=== PATIENT | male | born 1975 | race Caucasian/White ===

== ENCOUNTER 2023-08-22 02:14 | Emergency (ER) | payer OTHER, SELFPAY ==
--- NOTE | ~2023-08-22 | CT_ITS ---
EXAMINATION: CT abdomen pelvis w con DATE: 08/22/2023 04:10 INDICATION: Right flank pain TECHNIQUE: Computed tomography (CT) of the abdomen and pelvis was performed with 100 mL Omnipaque-350 intravenous contrast. Automated exposure control and iterative reconstruction technique were employe d. The dose-length product was 1261.10 mGy-cm. COMPARISON: None FINDINGS: Lung bases are clear. Heart size is normal. No pericardial or pleural effusion. Mild diffuse hepatic steatosis with more focal steatosis at the ligamentum teres. Gallbladder, spleen, pancreas and bilate ral adrenal glands are normal. There is moderate bilateral hydronephrosis and right hydroureter exten ding to the bladder. Left internal ureteral stent with loops formed in the left renal pelvis and in t he bladder. The bladder is distended. Postoperative change of prior distal colectomy with left lower quadrant and colostomy. There is a parastomal hernia containing a portion of the transverse colon. No bowel obstruction. There is a contiguous soft tissue density mass with irregular margins extending b etween the region of the prostate which may be surgically absent and the rectal fossa which measures 8.7 x 6.9 x 6.7 cm which is suspicious for malignancy. Correlate for the etiology of the prior distal colectomy. Small fat-containing right inguinal hernia. No abscess or free intraperitoneal gas or flu id. No pathologically enlarged abdominal or pelvic lymphadenopathy. Severe lumbosacral spondylosis wi th 4 mm retrolisthesis L5 on S1. IMPRESSION: 1. Moderate bilateral hydronephrosis with left-sided intraureteral stent in expected position. This s uggests obstruction at the level of the bladder outlet potentially related to a suspected malignant m ass extending between the region of the rectal fossa and prostate post prior distal colectomy and pos sible prostatectomy. Correlate with clinical/surgical history. 2. Left lower quadrant and colostomy with large parastomal hernia containing a nonobstructed segment of the transverse colon. 2. Small fat-containing right inguinal hernia. Reviewed, dictated and finalized at location A. IMPRESSION: 1. Moderate bilateral hydronephrosis with left-sided intraureteral stent in exp ected position. This suggests obstruction at the level of the bladder outlet po tentially related to a suspected malignant mass extending between the region of the rectal fossa and prostate post prior distal colectomy and possible prostat ectomy. Correlate with clinical/surgical history. 2. Left lower quadrant and colostomy with large parastomal hernia containing a nonobstructed segment of the transverse colon. 2. Small fat-containing right inguinal hernia.
[2023-08-22 02:41] VITALS: BP 149/91; PULSE 55; RESP 12; TEMP 36.7; O2SAT 99
[2023-08-22 03:21] LABS: Basophils Percent Auto 0.4 % (0.2-1.2); Eosinophils Absolute Auto 0.1 K/mm3 (0-0.3); Eosinophils Percent Auto 1.3 % (0-4.4); Hematocrit 34.5 % (42.0-52.0); Hemoglobin 11.4 g/dL (14.0-18.0); Immature Granulocyte Absolute 0.03 K/mm3 (0.00-0.031); Immature Granulocyte Percent A 0.6 % (0-0.5); Lymphocytes Absolute Auto 0.65 K/mm3 (0.9-3.2); Lymphocytes Percent Auto 12.2 % (18.3-44.2); Mean Corpuscular Hemoglobin 30.8 pg (26-34); Mean Corpuscular Volume 93.2 fl (80-100); Mean Platelet Volume 10.5 fl (7.4-10.4); Monocytes Absolute Auto 0.8 K/mm3 (0.1-0.6); Monocytes Percent Auto 14.7 % (2.6-8.5); Neutrophils Absolute Auto 3.8 K/mm3 (1.3-6.7); Neutrophils Percent Auto 70.8 % (45.5-73.1); Platelet Count Result 142 k/mm3 (150-375); Red Cell Distribution Width 14.9 % (11.5-14.5); White Blood Count 5.3 K/mm3 (4.5-10.0)
[2023-08-22] MEDS: SODIUM CHLORIDE 0.9% IV 2,000 ML 999 ML IV CONT (03:33)
[2023-08-22] MEDS: HYDROmorphone HCL INJ (*CRX) 1 MG/ML SYR 0.5 MG IV PUSH (03:33)
[2023-08-22] MEDS: KETOROLAC 15 MG/ML VIAL (*BKC) IV PUSH (03:33)
[2023-08-22] MEDS: ONDANSETRON INJ 4 MG/2 ML VIAL IV PUSH (03:33)
[2023-08-22 03:34] LABS: Alanine Aminotransferase 21 U/L (6-50); Alkaline Phosphatase 76 U/L (38-126); Anion Gap 9 mmol/L (4-12); Aspartate Amino Transferase 29 U/L (17-59); Bilirubin,Total 0.6 mg/dL (0.2-1.3); Blood Urea Nitrogen 17 mg/dL (9-20); Carbon Dioxide 23 mmol/L (22-30); Chloride 111 mmol/L (98-107); Estimated CRCL calculation 94 ml/min; Estimated Glomerular Filt Rate > 60; Glucose 126 mg/dL (65-110); Potassium 3.6 mmol/L (3.4-5.0); Sodium 143 mmol/L (137-145)
[2023-08-22 03:39] LABS: Appearance Urine Clear (Clear); Bacteria Urine None Seen /hpf; Bilirubin Urine Negative (Negative); Blood Urine 3+ (Negative); Color Urine Yellow (Yellow); Glucose Urine UA Negative (Negative); Ketones Urine Negative (Negative); Leukocyte Esterase Ur 1+ LEU/UL (Negative); Nitrate Urine Negative (Negative); Non Pathogenic Casts 0-2; Protein Urine Trace mg/dL (Negative); RBC Urine 51-100 /hpf (0-2); Specific Grav Ur 1.007 (1.001-1.035); Squamous Epithelial Cell Urine None Seen /hpf (Few); Urobilinogen Urine 0.2 mg/dL (<2.0)
[2023-08-22 03:44] LABS: Add Urine Microscopic? YES
[2023-08-22 04:25] VITALS: BP 144/87; PULSE 51; RESP 18; O2SAT 96
[2023-08-22 05:15] VITALS: BP 161/83; PULSE 49; RESP 15; O2SAT 98
--- NOTE | 2023-08-22 06:11 | ED.GENADULT ---
HPI - General Adult General Chief complaint: Back Pain/Injury Stated complaint: stent replaced at [facility]; vomiting/pain Time Seen by Provider: 08/22/23 02:25 History of Present Illness HPI narrative: This is a 48-year-old male presenting with right-sided flank pain. Patient had a stent placed on the left side yesterday [facility] she was hospital by diogo Iglesias. Prior to arrival developed sharp pain in flank radiating down into the groin. He also notes that he is leaking urine. No fevers chills nausea vomiting or diarrhea. Related Data Allergies Allergy/AdvReac Type Severity Reaction Status Date / Time No Known Allergies Allergy Mild Verified 01/18/09 18:20 Exam Narrative: APPEARANCE: No apparent distress. Head: atraumatic. EYES: EOMI, NOSE: Atraumatic NECK: Trachea midline RESPIRATORY: No increased rate of breathing CARDIOVASCULAR: RRR, ABDOMINAL: Colostomy bag in place, suprapubic fullness rest the abdomen is soft nontender no guarding rebound MUSCULOSKELETAl: No obvious deformities NEURO: Alert. Moving 4/4 extremities SKIN:: Warm, dry. Normal color PSYCHIATRIC: Normal affect Course Vital Signs Vital signs: Vital Signs Temperature 98.1 F 08/22/23 02:41 Pulse Rate 55 L 08/22/23 02:41 Respiratory Rate 12 08/22/23 02:41 Blood Pressure 149/91 H 08/22/23 02:41 Pulse Oximetry 99 08/22/23 02:41 Oxygen Delivery Room Air 08/22/23 02:41 Temperature 98.1 F 08/22/23 02:41 Pulse Rate 49 L 08/22/23 05:15 Respiratory Rate 15 08/22/23 05:15 Blood Pressure 161/83 H 08/22/23 05:15 Pulse Oximetry 98 08/22/23 05:15 Oxygen Delivery Room Air 08/22/23 02:41 Medical Decision Making [facility] Narrative Medical decision making narrative: -Course: 48-year-old male presenting with right flank pain suprapubic pain and urinary leakage. CT showed a massively distended bladder with possible urinary outlet obstruction due to metastatic colon cancer. Catheter was placed with improvement in the patient's pain and over 1.5 L of urine. Patient will be discharged follow-up with his urologist for further management. -DDX includes but is not limited to: this placed stents, urinary retention, kidney stone, UTI/pyelo, bowel obstruction, progressing neoplasm -Co-morbidities complicating care: stage IV colon cancer -Independent interpretation of studies: labs reviewed CT: 1. Moderate bilateral hydronephrosis with left-sided intraureteral stent in expected position. This suggests obstruction at the level of the bladder outlet potentially related to a suspected malignant mass extending between the region of the rectal fossa and prostate post prior distal colectomy and possible prostatectomy. Correlate with clinical/surgical history. 2. Left lower quadrant and colostomy with large parastomal hernia containing a nonobstructed segment of the transverse colon. 2. Small fat-containing right inguinal hernia. -Interventions: 2 L normal saline, 4 mg Zofran, 15 mg Toradol, 0.5 mg Dilaudid -Shared decision making / Disposition: discharge Vital Signs Vital Signs: Vital Signs Temperature 98.1 F 08/22/23 02:41 Pulse Rate 55 L 08/22/23 02:41 Respiratory Rate 12 08/22/23 02:41 Blood Pressure 149/91 H 08/22/23 02:41 Pulse Oximetry 99 08/22/23 02:41 Oxygen Delivery Room Air 08/22/23 02:41 Temperature 98.1 F 08/22/23 02:41 Pulse Rate 49 L 08/22/23 05:15 Respiratory Rate 15 08/22/23 05:15 Blood Pressure 161/83 H 08/22/23 05:15 Pulse Oximetry 98 08/22/23 05:15 Oxygen Delivery Room Air 08/22/23 02:41 Lab Data 08/22/23 03:08 08/22/23 03:08 Labs: Lab Results 08/22/23 08/22/23 Range/Units 03:08 03:27 WBC 5.3 (4.5-10.0) K/mm3 RBC 3.70 L (4.6-6.20) M/mm3 Hgb 11.4 L (14.0-18.0) g/dL Hct 34.5 L (42.0-52.0) % MCV 93.2 (80-100) fl MCH 30.8 (26-34) pg MCHC 33.0 (32-36) g/dl RDW 14.9 H (11.5-14.5) % Plt Count
--- NOTE | 2023-08-22 06:43 | PC.NURSE ---
Catheter placed. 1000mL initial output, allred bag clamped at this time.
--- NOTE | 2023-08-22 07:08 | PC.NURSE ---
Leg bag given
== END 2023-08-22 07:08 | disposition home or self-care (01) ==
PROVIDERS: Emergency Provider Emergency Medicine; PCP Internal Medicine
DX: R33.9 Retention of urine, unspecified (principal); C18.9 Malignant neoplasm of colon, unspecified; Z96.0 Presence of urogenital implants; N13.30 Unspecified hydronephrosis; K43.5 Parastomal hernia without obstruction or gangrene; K40.90 Unilateral inguinal hernia, without obstruction or gangrene, not specified as recurrent; Z93.3 Colostomy status
CPT/HCPCS: 36415; 51702; 74177; 80053; 81001; 85025; 87086; 96361; 96374; 96375; 99284; J1170; J1885; J2405; J7030; Q9967